=== PATIENT | male | born 1965 | race Caucasian/White ===

== ENCOUNTER 2017-12-28 19:50 | Emergency (ER) | payer SELFPAY ==
[~2017-12-28] VITALS: Ht 177.8 cm; Wt 99.8 kg
[2017-12-28] MEDS ORDERED: HYDROmorphone HCL 2 MG TAB PO ONE (20:15)
[2017-12-28] MEDS ORDERED: KETOROLAC TROMETH 60MG/2ML VIAL IM ONE (20:15)
[2017-12-28] MEDS ORDERED: MEPERIDINE HCL (50 MG/ML) 1 ML VIAL ONE (20:19)
[2017-12-28] MEDS ORDERED: MEPERIDINE HCL (50 MG/ML) 1 ML VIAL IV ONE (20:30)
[2017-12-28] MEDS ORDERED: HYDROmorphone HCL 2 MG/ML VL IV ONE (22:45)
[2017-12-28] MEDS ORDERED: HYDROmorphone HCL 2 MG/ML VL ONE (22:54)
[2017-12-29] MEDS ORDERED: LORazepam 2MG/ML-1ML VIAL IV ONE (00:30)
[2017-12-29] MEDS ORDERED: LORazepam 2MG/ML-1ML VIAL ONE (00:30)
[2017-12-29 02:34] VITALS: BP 158/122
== END 2017-12-29 03:00 | disposition home or self-care (01) ==
LOC: ER 19:50 → EDBD 19:50 → ER 12-29 03:00
DX: S33.5XXA Sprain of ligaments of lumbar spine, initial encounter (principal); M54.16 Radiculopathy, lumbar region; I10 Essential (primary) hypertension; Z91.041 Radiographic dye allergy status; X58.XXXA Exposure to other specified factors, initial encounter; Y93.89 Activity, other specified; Y99.8 Other external cause status; Y92.89 Other specified places as the place of occurrence of the external cause
CPT/HCPCS: 72131; 96372; 96374; 96375; 99284; J1170; J1885; J2060; J2175